=== PATIENT | female | born 1970 | race Caucasian/White ===

== ENCOUNTER → 2019-01-24 | Outpatient (CLI) | payer BC ==
--- NOTE | 2019-01-24 12:55 | Diagnostic Imaging Report ---
Indication: Left hip pain. Time of exam 11:54 AM 2 views left hip show normal femoral acetabular alignment. Femoral head and neck are intact. No fractures are seen. Joint spaces are fairly well-maintained. Impression: No acute bony abnormalities detected. Dictated by: Dictated on workstation # [id number]
== END ==
LOC: RAD FS 11:44
PROVIDERS: ATTEND Nurse Practitioner
DX: M25.552 Pain in left hip (principal)
CPT/HCPCS: 73502